=== PATIENT | female | born 1995 | race Two or more races ===

== ENCOUNTER 2020-04-17 09:54 | Outpatient (CLI) | payer OTHER | END 2020-04-17 10:01 | disposition home or self-care (01) | LOC: LAB 09:54 | DX: Z11.3 Encounter for screening for infections with a predominantly sexual mode of transmission (principal) ==

== ENCOUNTER → 2020-04-24 | Outpatient (CLI) | payer OTHER | END | disposition home or self-care (01) | LOC: SONOGRAMA 12:50 → MAMO-SONO 13:15 | DX: Q51.818 Other congenital malformations of uterus (principal); R10.2 Pelvic and perineal pain ==

== ENCOUNTER 2021-01-03 19:22 | Emergency (ER) | payer OTHER ==
[~2021-01-03] VITALS: Ht 160 cm; Wt 54.4 kg
[2021-01-03] MEDS ORDERED: NAPROZEN (20:13)
[2021-01-03] MEDS ORDERED: DICLOFENAC SODI75 MG PO (20:48)
== END 2021-01-03 20:58 | disposition home or self-care (01) ==
LOC: ER 19:22
DX: M94.0 Chondrocostal junction syndrome [Tietze] (principal)

== ENCOUNTER 2021-02-06 09:08 | Outpatient (CLI) | payer OTHER ==
[~2021-02-06 09:08] MED LIST: DICLOFENAC SODI75 MG PO; NAPROZEN
== END 2021-02-06 09:19 | disposition home or self-care (01) ==
LOC: SONOGRAMA 09:08 → MAMO-SONO 09:15 → SONOGRAMA 09:19
DX: R10.2 Pelvic and perineal pain (principal); N94.6 Dysmenorrhea, unspecified; N83.201 Unspecified ovarian cyst, right side

== ENCOUNTER 2022-08-16 05:00 | Emergency (ER) | payer OTHER ==
[~2022-08-16] VITALS: Ht 160 cm; Wt 59.0 kg
== END 2022-08-16 08:30 | disposition home or self-care (01) ==
LOC: ER 05:00
DX: G43.909 Migraine, unspecified, not intractable, without status migrainosus (principal)